=== PATIENT | female | born 1985 | race Caucasian/White ===

== ENCOUNTER 2016-09-14 13:18 | Outpatient (CLI) | payer BC ==
--- NOTE | 2016-09-14 14:00 | L&D Flow Sheet ---
LD Flowsheet Datetime Report Generated by CPN: 09/14/2016 14:00 Datetime: 09/14/2016 13:47 Monitor Interventions for FHR: Ultrasound Adjusted (Phoebe Camp, RNC) Comments: RN at bedside holding monitors (Phoebe Camp, RNC) Datetime: 09/14/2016 13:39 NBP Sys/Mariluz/Mean (mmHg): 114 (QS system process) : 58 (QS system process) : 79 (QS system process) Pulse: 112 (QS system process) Respirations: 16 (Phoebe Camp, RNC) Temperature (F): 98.1 (Phoebe Camp, RNC) Temperature (C): 36.7 (QS system process) Temperature Route: Oral (Phoebe Camp, RNC) LaborFlag: Labor (QS system process) Datetime: 09/14/2016 13:37 I/O Interventions: Popsicle; Clear Liquids Given (Phoebe Camp, RNC) Datetime: 09/14/2016 13:34 Patient Position/Activity: HOB Lowered; Left Lateral (Phoebe Camp, RNC) Patient Care Comments: EFM explained and applied (Phoebe Camp, RNC) Datetime: 09/14/2016 13:32 Instructional Method: Demo; Verbal; Patient Instructed (CATHY Roberto) Plan of Care: Plan of Care Discussed (CATHY Roberto) Unit Routine: [place] to Room; Bed; Monitoring (CATHY Roberto) Related: Hydration (CATHY Roberto) Teaching Comments: reviewed poc for labor check process and NST with expected outcomes and time frames reviewed (CATHY Roberto) Datetime: 09/14/2016 12:00 Stage of : Labor (CATHY Roberto)
--- NOTE | 2016-09-14 14:17 | Non Stress Test Report ---
Non Stress Test Datetime Report Generated by CPN: 09/14/2016 14:17 DEMOGRAPHIC EGA NST: 36.6 INDICATION Indication for Study: Polyhydramnios; Other Indication for Study (NST) Other: maternal obesity VITAL SIGNS Temperature - NST: 98.1 Pulse - NST: 112 RESP - NST: 16 NBPSYS NST: 114 NBPDIA NST: 58 MONITORING Monitor Explained: Monitor Explained; Test Explained; Patient Verbalized Understanding Time on Monitor: 09/14/2016 13:33 Time off Monitor: 09/14/2016 14:04 NST Duration: 31 NST INTERVENTIONS NST Interventions: PO Hydration Physician Notified NST: Dr Zaragoza BABY A: [id number] BABY A Movement : Present Contraction Frequency : none FHR Baseline : 135 Accelerations : 15X15 Decelerations : None Variability : Moderate 6-25bpm NST Review: Meets Criteria for Reactive NST NST Review and Verified By : ELEAZAR PEREZ RN NST Results: Reactive NST REPORT Report Trigger: Send Report
== END 2016-09-14 14:09 | disposition home or self-care (01) ==
LOC: LC 13:18
PROVIDERS: ATTEND Obstetrics & Gynecology
PROC: 4A1HXCZ Monitoring of Products of Conception, Cardiac Rate, External Approach (ICD-10-PCS; principal; 2016-09-14)
DX: Z34.93 Encounter for supervision of normal pregnancy, unspecified, third trimester (principal); Z3A.36 36 weeks gestation of pregnancy
CPT/HCPCS: 59025

== ENCOUNTER 2016-09-29 05:09 | Inpatient (IN) | payer BC, OTHER ==
[2016-09-28 10:30] LABS: ABSOLUTE EOSINOPHILS # (AUTO) 0.1 10^3/uL (0.0-0.6); ABSOLUTE LYMPHOCYTES (AUTO) 1.3 10^3/uL (0.5-4.7); ABSOLUTE MONOCYTES (AUTO) 0.6 10^3/uL (0.1-1.4); ABSOLUTE NEUT (AUTO) 8.3 10^3/uL (1.7-8.2); BASOPHILS % (AUTO) 0.4 % (0-2); HEMATOCRIT 27.7 % (36.0-47.0); HEMOGLOBIN 8.8 g/dL (12.0-15.5); HGB HCT DIFFERENCE -1.3; LYMPHOCYTES % (AUTO) 12.7 % (13-45); MEAN CORPUSCULAR HEMOGLOBIN 22.6 pg (27.0-33.4); MEAN CORPUSCULAR HGB CONC 31.6 g/dL (32.0-36.0); MEAN CORPUSCULAR VOLUME 71 fl (80-97); RED BLOOD COUNT 3.87 10^6/uL (3.72-5.28); RED CELL DISTRIBUTION WIDTH 17.4 % (11.5-14.0); SEGMENTED NEUTROPHILS % (AUTO) 79.9 % (42-78); WHITE BLOOD COUNT 10.4 10^3/uL (4.0-10.5)
[2016-09-28 10:38] LABS: APPEARANCE,URINE SLIGHTLY-CLOUDY; BILIRUBIN,URINE NEGATIVE (NEGATIVE); GLUCOSE, URINE NEGATIVE (NEGATIVE); KETONES,URINE NEGATIVE (NEGATIVE); LEUKOCYTE ESTERASE,URINE SMALL (NEGATIVE); NITRITE,URINE NEGATIVE (NEGATIVE); PROTEIN,URINE NEGATIVE (NEGATIVE); URINE SPECIFIC GRAVITY 1.018
[2016-09-28 11:21] LABS: URINE BARBITURATES SCREEN NEGATIVE; URINE METHADONE SCREEN NEGATIVE; URINE OPIATES LOW NEGATIVE; URINE PHENCYCLIDINE SCREEN NEGATIVE
[~2016-09-29 05:09] MED LIST: AZITHROMYCIN 500 MG in DEXTROSE 5%-WATER 250 ML IV PRN; LACTATED RINGERS 1000 ML IV PRN; LIDOCAINE 0.5% INJ-PF (5 MG/ML) 50 ML SDV SUBCUT PRN; RINGERS SOLUTION,LACTATED 1,500 ML IV PRN
[2016-09-29] MEDS ORDERED: AZITHROMYCIN INJ 500 MG VIAL IV ONE (06:36)
[2016-09-29] MEDS ORDERED: PROPOFOL INJ 200 MG/20 ML VIAL IV ONE (08:01)
[2016-09-29] MEDS ORDERED: OXYTOCIN 10 UNIT/ML VIAL ONE (08:01)
[2016-09-29] MEDS ORDERED: FENTANYL CITRATE INJ/PF 100 MCG/2 ML AMPUL ONE (08:02)
[2016-09-29] MEDS ORDERED: MIDAZOLAM 2 MG/2 ML INJ ONE (08:02)
[2016-09-29] MEDS ORDERED: CLINDAMYCIN 900 MG/D5W RTU 50 ML IV ONE (08:21)
[2016-09-29] MEDS: MISOPROSTOL 0.2 MG TABLET ONE ×2 (09:13→09:27)
[2016-09-29] MEDS ORDERED: ACETAMINOPHEN 100 ML IV ONE (10:01)
[2016-09-29] MEDS ORDERED: LIDOCAINE 2% INJ-PF (20 MG/ML) 10 ML AMPUL ONE (10:10)
[2016-09-29] MEDS ORDERED: PHENYLEPHRINE HCL INJ/PF 10 MG/1 ML SDV ONE (10:10)
[2016-09-29] MEDS ORDERED: METOCLOPRAMIDE HCL INJ/PF 10 MG/2 ML SDV ONE (10:10)
[2016-09-29] MEDS: MEPERIDINE HCL/PF INJ 25 MG/1 ML DISP.SYRIN ONE ×2 (10:10→10:15)
[2016-09-29] MEDS ORDERED: ONDANSETRON HCL INJ/PF 4 MG/2 ML SDV ONE (10:10)
[2016-09-29] MEDS ORDERED: ACETAMINOPHEN 325 MG TABLET PO PRN (10:29)
[2016-09-29] MEDS ORDERED: PROMETHAZINE HCL INJ 25 MG/1 ML VIAL IV PRN (10:29)
[2016-09-29] MEDS ORDERED: MEASLES,MUMPS&RUBELLA VACC/PF 0.5 ML VIAL SUBCUT PRN (10:29)
[2016-09-29] MEDS ORDERED: DIPH/PERTUSS(ACELL)/TETANUS VAC/PF 0.5 ML SYR (>=10YO) IM PRN (10:29)
[2016-09-29] MEDS ORDERED: OXYTOCIN/NORMAL SALINE 1,000 ML IV PRN (10:29)
[2016-09-29] MEDS ORDERED: OXYCODONE-ACETAMINOPHEN 5-325 MG TABLET PO PRN (10:29)
[2016-09-29] MEDS ORDERED: SIMETHICONE 80 MG TAB.CHEW PO PRN (10:29)
[2016-09-29] MEDS ORDERED: KETOROLAC TROMETHAMINE INJ/PF 30 MG/1 ML SDV IV SCH (10:30)
[2016-09-29] MEDS: FENTANYL CITRATE INJ/PF 100 MCG/2 ML AMPUL ONE ×2 (11:15→11:20)
[2016-09-29] MEDS: HYDROMORPHONE HCL INJ/PF 2 MG/ML AMPULE IV PRN ×2 (13:10→18:03)
[2016-09-29] MEDS: CLINDAMYCIN 900 MG/D5W RTU 50 ML IV SCH ×2 (14:15→22:11)
--- NOTE | 2016-09-29 16:14 | XCELERA REPORT ---
[address] [address] Lower Extremity Venous Evaluation Name: JAZMIN FUNES Age: 31 yrs Gender: Female : 1985 Patient Status: Inpatient Patient Location: 2S\S\218\S\A Study Date: 09/29/2016 03:03 PM Procedure: Color flow and duplex imaging of the veins of the right lower extremity as well as the left Common Femoral vein. Reason For Study: lower right calf pain Ordering Physician: NAM PALACIOS Performed By: Briana Vazquez Right Sided Venous Evaluation Normal vessel filling wall to wall, compression and augmentation as well as Colour flow down to the infrageniculate veins. Left Sided Venous Evaluation The left common femoral vein is fully compressible. Spontaneous and phasic flow is present in the left common femoral vein. Interpretation Summary No duplex evidence of DVT or obstruction in the right lower extremity nor in the left Common Femoral vein. : NAM PALACIOS > Ross Fletcher
[2016-09-29] MEDS: DOCUSATE SODIUM 100 MG CAPSULE PO SCH (18:03)
[2016-09-29] MEDS ORDERED: IBUPROFEN 800 MG TABLET PO SCH (22:00)
[2016-09-29] MEDS: KETOROLAC TROMETHAMINE INJ/PF 30 MG/1 ML SDV IV SCH (22:08)
[2016-09-30] MEDS: OXYCODONE-ACETAMINOPHEN 5-325 MG TABLET PO PRN ×2 (03:46→20:44)
--- NOTE | 2016-09-30 06:01 | L&D General Admission ---
General Admit Datetime Report Generated by CPN: 09/30/2016 06:00 INFORMATION Patient Age: 31 (09/08/2016 14:06:QS system process) EDC: 10/06/2016 00:00 (09/14/2016 13:30:CATHY Roberto) : 5 (09/14/2016 13:30:Constance Carrillo RN) Para: 3 (09/14/2016 13:30:Constance Carrillo RN) Term: 3 (09/14/2016 13:30:Constance Carrillo RN) Induced Abortions: 1 (09/14/2016 13:30:Constance Carrillo RN) Livin (09/14/2016 13:30:Constance Carrillo RN) Cesareans: 3 (09/14/2016 13:30:Constance Carrillo RN) VBACs: 0 (09/14/2016 13:30:CATHY Roberto) Ectopic: 0 (09/14/2016 13:30:CATHY Roberto) Multiple Births: 0 (09/14/2016 13:30:CATHY Roberto) Baby, Number in Womb: 1 (09/14/2016 13:30:CATHY Roberto) CARE Primary Substation Operator Helper Generation: [facility] (09/14/2016 13:30:Constance Carrillo RN) Month of 1st Visit: August (09/14/2016 13:30:Constance Carrillo RN) Adequate Care: No (09/14/2016 13:30:Constance Carrillo RN) Height (in): 66 (09/29/2016 14:32:QS system process) ALLERGIES Medication Allergy: No (09/14/2016 13:30:CATHY Roberto) Medication Allergies: Penicillins/SV/itching (09/28/2016); Shellfish */SV/Hives (09/28/2016); amoxicillin/SV/itching (09/28/2016) (09/29/2016 05:10:QS system process) Latex Allergy: No Latex Allergies (09/14/2016 13:30:Phoebe Camp, RNC) COMMUNICATION Primary Language: Kuwaiti (09/14/2016 13:30:Constance Carrillo RN) Medical Tx Preferred Language: Kuwaiti (09/14/2016 13:30:Phoebe Camp, RNC) Communication Barrier(s): None (09/14/2016 13:30:Phoebe Camp, RNC) DEMOGRAPHICS Address: [address] [place] [id number] (09/08/2016 17:29:QS system process) Zipcode: [address] (09/08/2016 17:29:QS system process) Home (09/08/2016 14:06:QS system process) SSN: [id number] (09/08/2016 14:06:QS system process) Next of Kin Name: SHELLY FUNES (09/14/2016 13:18:QS system process) Next of Kin (09/14/2016 13:18:QS system process) Next of Kin Relationship: MO (09/08/2016 14:06:QS system process) Date of : 1985 (09/08/2016 14:06:QS system process) Marital Status: (09/08/2016 14:06:QS system process) Sex: Female (09/08/2016 14:06:QS system process) Race: (09/08/2016 14:06:QS system process) Ethnicity: Non- or (09/08/2016 14:06:QS system process) Confucianist: None (09/14/2016 13:18:QS system process) LABS Blood Type: A Positive (09/14/2016 13:30:Constance Carrillo RN) Antibody Screen: negative (09/14/2016 13:30:Constance Carrillo RN) Rho(G) this : Yes (09/14/2016 13:30:Constance Carrillo RN) Date Rho(G) Given: 2-09-22506 (09/14/2016 13:30:Constance Carrillo RN) Hemoglobin: 8.8 L (09/28/2016 09:43:QS system process) Hematocrit: 27.7 L (09/28/2016 09:43:QS system process) MCV: 71 L (09/28/2016 09:43:QS system process) RPR/VDRL: Nonreactive (09/14/2016 13:30:Constance Carrillo RN) Hepatitis B: Negative (09/14/2016 13:30:Constance Carrillo RN) Rubella: Immune (09/14/2016 13:30:Constance Carrillo RN)
[2016-09-30] MEDS: KETOROLAC TROMETHAMINE INJ/PF 30 MG/1 ML SDV IV SCH (06:14)
[2016-09-30] MEDS: CLINDAMYCIN 900 MG/D5W RTU 50 ML IV SCH (06:14)
[2016-09-30 07:28] LABS: HEMATOCRIT 26.5 % (36.0-47.0); HEMOGLOBIN 8.3 g/dL (12.0-15.5); HGB HCT DIFFERENCE -1.6; MEAN CORPUSCULAR HEMOGLOBIN 22.4 pg (27.0-33.4); MEAN CORPUSCULAR HGB CONC 31.2 g/dL (32.0-36.0); MEAN CORPUSCULAR VOLUME 72 fl (80-97); RED CELL DISTRIBUTION WIDTH 17.8 % (11.5-14.0); WHITE BLOOD COUNT 10.7 10^3/uL (4.0-10.5)
[2016-09-30] MEDS ORDERED: PRENATAL VITAMIN W-O CA NO5/FE FUMARATE/FA CAPSULE PO SCH (10:00)
[2016-09-30] MEDS ORDERED: FERROUS SULFATE 325 MG TABLET PO SCH (10:00)
[2016-09-30] MEDS: FERROUS SULFATE 325 MG TABLET PO SCH (10:46)
[2016-09-30] MEDS: PRENATAL VITAMIN W-O CA NO5/FE FUMARATE/FA CAPSULE PO SCH (10:46)
[2016-09-30] MEDS: DOCUSATE SODIUM 100 MG CAPSULE PO SCH ×2 (10:47→18:18)
--- NOTE | 2016-09-30 11:16 | PDOC PROGRESS REPORT ---
Subjective-OB Subjective: Post Delivery Day: 1 31 year old. Denies any needs at this time, lochia is stable, pain is well controlled, voiding without difficulty. Passing gas, tolerating diet ambulating steady, has been down to visit baby. Physical Exam (OB) Vital Signs: Temp Pulse Resp BP Pulse Ox 98.5 F 99 18 105/51 L 97 09/30/16 07:42 09/30/16 07:42 09/30/16 07:42 09/30/16 07:42 09/30/16 07:42 Intake & Output 09/29/16 09/30/16 10/01/16 06:59 06:59 06:59 Intake Total 4475 Output Total 5550 Balance -1075 Weight 131.54 kg - Incision: Well Approximated Closure Type: Surgical Glue - Lochia Lochia Amount: Small 10-25 ml Lochia Color: Rubra/Red - Abdomen Description: Soft, Round Hernia Present: No Fundal Description: Firm, Midline Fundal Height: u/u - u/2 Objective-Diagnostic Laboratory: 09/30/16 07:13 09/30/16 09/30/16 07:13 07:13 WBC 10.7 H RBC 3.70 L Hgb 8.3 L Hct 26.5 L MCV 72 L MCH 22.4 L MCHC 31.2 L RDW 17.8 H Plt Count 178 Blood Type A NEGATIVE Assessment and Plan(PN) - Assessment and Plan (1) Status post repeat low transverse section Is this a current diagnosis for this admission?: YesPlan: routine post-op care progressive ambulation diet as tolerated (2) Acute blood loss anemia Is this a current diagnosis for this admission?: YesPlan: ferrous sulfate increase dietary iron (3) Polyhydramnios Qualifiers: Fetus number: single or unspecified fetus Is this a current diagnosis for this admission?: Yes (4) Placenta percreta during in third trimester, antepartum Is this a current diagnosis for this admission?: Yes - Time Spent with Patient Time with patient: Less than 15 minutes Critical Time spent with patient: Less than 15 minutes Medications reviewed and adjusted accordingly: Yes - Disposition Anticipated Discharge: Home Within: within 48 hours
[2016-09-30] MEDS: IBUPROFEN 800 MG TABLET PO SCH ×3 (13:03→23:00)
[2016-10-01] MEDS: IBUPROFEN 800 MG TABLET PO SCH ×4 (05:26→23:24)
[2016-10-01] MEDS: FERROUS SULFATE 325 MG TABLET PO SCH (09:30)
[2016-10-01] MEDS: DOCUSATE SODIUM 100 MG CAPSULE PO SCH ×2 (09:30→18:14)
[2016-10-01] MEDS: PRENATAL VITAMIN W-O CA NO5/FE FUMARATE/FA CAPSULE PO SCH (09:30)
--- NOTE | 2016-10-01 09:40 | PDOC PROGRESS REPORT ---
Subjective-OB Subjective: Post Delivery Day: 2 31 year old. Denies any needs at this time, baby is doing better, pt coping well, voiding without difficulty, hopes to bring baby to room with pt tonight. Physical Exam (OB) Vital Signs: Temp Pulse Resp BP Pulse Ox 97.8 F 82 16 115/67 98 10/01/16 04:31 10/01/16 04:31 10/01/16 04:31 10/01/16 04:31 10/01/16 04:31 Intake & Output 09/30/16 10/01/16 10/02/16 06:59 06:59 06:59 Intake Total 4475 300 Output Total 5550 Balance -1075 300 - Dressing Removed: Yes Incision: Well Approximated Closure Type: Surgical Glue - Lochia Lochia Amount: Small 10-25 ml Lochia Color: Rubra/Red - Abdomen Description: Soft, Round Hernia Present: No Fundal Description: Firm, Midline Fundal Height: u/u - u/2 Objective-Diagnostic Laboratory: 09/30/16 07:13 09/30/16 07:13 Blood Type A NEGATIVE Assessment and Plan(PN) - Assessment and Plan (1) Status post repeat low transverse section Is this a current diagnosis for this admission?: YesPlan: routine post op care d/c home tomorrow (2) Acute blood loss anemia Is this a current diagnosis for this admission?: YesPlan: ferrous sulfate increase dietary iron (3) Polyhydramnios Qualifiers: Fetus number: single or unspecified fetus Is this a current diagnosis for this admission?: Yes (4) Placenta percreta during in third trimester, antepartum Is this a current diagnosis for this admission?: Yes - Time Spent with Patient Time with patient: Less than 15 minutes Critical Time spent with patient: Less than 15 minutes Medications reviewed and adjusted accordingly: Yes - Disposition Anticipated Discharge: Home Within: within 24 hours
[2016-10-02] MEDS: IBUPROFEN 800 MG TABLET PO SCH (05:17)
--- NOTE | 2016-10-02 08:54 | PDOC DISCHARGE SUMMARY ---
Final Diagnosis Discharge Date: 10/02/16 - Final Diagnosis (1) Acute blood loss anemia Is this a current diagnosis for this admission?: Yes (2) Placenta percreta during in third trimester, antepartum Is this a current diagnosis for this admission?: Yes (3) Polyhydramnios Is this a current diagnosis for this admission?: Yes (4) Status post repeat low transverse section Is this a current diagnosis for this admission?: Yes Discharge Data - Discharge Medication Home Medications: Pnv W-O Ca No5/Fe Fumarate/FA [-U Multiple Vitamin Capsule] 1 cap PO DAILY 02/01/13 Ferrous Sulfate [Iron] 1 tab PO DAILY 09/14/16 Hydroxyzine HCl 25 mg PO DAILY 09/28/16 Nitrofurantoin Monohyd/M-Cryst [Macrobid 100 mg Capsule] 100 mg PO BID 09/28/16 Reason(s) for Admission: Ceasarean Section-Repeat Procedures: Ultrasound Intrapartum Procedure(s): : Low Cervical, Transverse - Diagnosis Test Laboratory: Temp Pulse Resp BP Pulse Ox 98.4 F 81 16 105/61 99 10/02/16 03:55 10/02/16 03:55 10/02/16 03:55 10/02/16 03:55 10/02/16 03:55 09/28/16 09/28/16 09/30/16 09:34 09:43 07:13 RBC 3.87 3.70 L Hgb 8.8 L 8.3 L Hct 27.7 L 26.5 L Urine Opiates Screen NEGATIVE - Discharge information/Instructions Discharge Activity: No Driving, No Lifting Over 10 Pounds, Slowly Increase Activity, Walk Frequently Discharge Diet: Regular Disposition: HOME, SELF-CARE Follow up with: [facility] in: 1 - pt may be a late discharge instructions given to keep incision dry and intact
[2016-10-02 09:11] VITALS: BP 118/71
[2016-10-02] MEDS: PRENATAL VITAMIN W-O CA NO5/FE FUMARATE/FA CAPSULE PO SCH (10:08)
[2016-10-02] MEDS: FERROUS SULFATE 325 MG TABLET PO SCH (10:08)
[2016-10-02] MEDS: DOCUSATE SODIUM 100 MG CAPSULE PO SCH (10:08)
--- NOTE | 2016-10-30 07:45 | Operative Report ---
Operative Report DATE OF SURGERY: 09/29/16 POSTOPERATIVE DIAGNOSIS: Percreta, Polyhydramnios, Transverse Back Down delivered breech OPERATION: RELTCS SURGEON: NESSA METZ ANESTHESIA: Spinal ESTIMATED BLOOD LOSS: 700ml PROCEDURE: PREOPERATIVE DIAGNOSIS: undelivered at [39+0] weeks, Polyhydramnios, Prior C/S x3, Transverse presentation POSTOPERATIVE DIAGNOSIS: Same as above delivered Procedure: RELTCS Otr Driver:[None] Anesthesia: Spinal Anesthesia provider: Michael] Estimated blood loss: [700ml] Urine output: [200ml, clear urine] IV fluids: [2800ml] Complications: [None] Specimens: [None] Findings: [Vessels visible at uterine scar - suspect increta/percreta, Transverse back down presentation delivered in breech fashion, VMI delivered at 0844, Apgars 3/7. Scar of Omentum and anterior uterine body to anterior abdominal wall, normal bilateral ovaries.] Indications: [31yo at 39+0ega (CANDIDO 10/06/2016) presents for scheduled RELTCS due to history of prior section x 3. also complicated by Transverse presentation and polyhydramnios. The risks, benefits , alternatives were reviewed and the patient desires to proceed with planned procedure] Procedure: The patient was taken to the operating room where spinal anesthesia was obtained and found to be adequate. She was then prepped and draped in the normal sterile fashion and placed in the dorsal supine position with a leftward tilt. A Pfannenstiel skin incision was then made and carried through to the underlying layers of the fascia with the scalpel. The fascia was incised in the midline and the incision extended laterally with the Perry scissors. The superior aspect of the fascial incision was then grasped with Teri clamps elevated and the underlying rectus muscles dissected off [bluntly]. Attention was then turned to the inferior aspect of the fascial incision which in a similar fashion was grasped, tented up with Eugene clamps, and the rectus muscles dissected off [bluntly]. The rectus muscles were then in the midline and the peritoneum at the amount identified and entered [bluntly]. The peritoneal incision was then extended superiorly and inferiorly with good visualization of the bladder. Lysis of adhesions removing omental adhesions and uterine body adhesions to anterior abdominal wall. The bladder blade was inserted and the lower uterine segment incised in a transverse fashion with the scalpel below the visible vessels extending into uterine scar. The uterine incision was then extended bluntly. The bladder blade was removed and the infant's head was converted from transverse presentation and delivered from breech presentation atraumatically. The nose and mouth were suctioned and the cord doubly clamped and cut. And the was handed off to waiting pediatricians. The placenta was then delivered spontaneously and the uterus exteriorized and cleared of all clots and debris. The uterine incision was then repaired with 1- 0 Vicryl in a running locked fashion. A second layer of the same suture was used to obtain hemostasis via imbrication of the initial layer. The uterus was returned to the patient's abdomen and Interceed was placed overlying the uterine incision to prevent adhesions. The gutters were cleared of all clots and debris. All operative sites were noted to be hemostatic. The fascia was reapproximated with 0 Vicryl in a running fashion from each lateral edge to the midline. The skin was closed with 3-0 Monocryl in a running subcuticular fashion with overlying Dermabond for additional dressing as well as wound closure. The patient tolerated the procedure well. Sponge lap needle and instrument counts are correct times 2. Zithromycin 500mg IV and 900mg of Clindamycin IV were given prior to skin incision. The patient was taken to the recovery area awake and in stable condition.
== END 2016-10-02 11:22 | disposition home or self-care (01) | DRG 765 ==
LOC: 2S 05:09
PROVIDERS: ADMIT Student in an Organized Health Care Education/Training Program; ATTEND Student in an Organized Health Care Education/Training Program
PROC: 4A1HXCZ Monitoring of Products of Conception, Cardiac Rate, External Approach (ICD-10-PCS; 2016-09-29)
PROC: 10D00Z1 Extraction of Products of Conception, Low, Open Approach (ICD-10-PCS; principal; 2016-09-29 07:45)
PROC: 3E0234Z Introduction of Serum, Toxoid and Vaccine into Muscle, Percutaneous Approach (ICD-10-PCS; 2016-09-30)
DX: O40.3XX0 Polyhydramnios, third trimester, not applicable or unspecified (principal); D62 Acute posthemorrhagic anemia; O72.0 Third-stage hemorrhage; O34.211 Maternal care for low transverse scar from previous cesarean delivery; O99.02 Anemia complicating childbirth; O43.233 Placenta percreta, third trimester; O36.63X0 Maternal care for excessive fetal growth, third trimester, not applicable or unspecified; O64.8XX0 Obstructed labor due to other malposition and malpresentation, not applicable or unspecified; O32.1XX0 Maternal care for breech presentation, not applicable or unspecified; O26.893 Other specified pregnancy related conditions, third trimester; Z67.11 Type A blood, Rh negative; Z3A.39 39 weeks gestation of pregnancy; Z37.0 Single live birth
CPT/HCPCS: 1961; 36415; 80307; 81001; 85025; 85027; 85461; 86850; 86870; 86900; 86901; 88307; 93971; 94799; C1765; J0131; J0456; J1170; J1885; J2175; J2250; J2370; J2405; J2590; J2704; J2765; J2790; J3010; J3490; J7060; J7120

== ENCOUNTER 2018-03-01 08:59 | Emergency (ER) | payer BC ==
[2018-03-01] MEDS ORDERED: ONDANSETRON HCL INJ/PF 4 MG/2 ML SDV IV ONE (09:33)
[2018-03-01] MEDS: NORMAL SALINE 1000 ML 1,000 ML IV PRN ×2 (09:43→11:57)
[2018-03-01 10:06] LABS: ABSOLUTE LYMPHOCYTES (AUTO) 1.3 10^3/uL (0.5-4.7); ABSOLUTE MONOCYTES (AUTO) 0.7 10^3/uL (0.1-1.4); ABSOLUTE NEUT (AUTO) 8.4 10^3/uL (1.7-8.2); BASOPHILS % (AUTO) 0.3 % (0-2); EOSINOPHILS % (AUTO) 0.1 % (0-6); HEMATOCRIT 40.1 % (36.0-47.0); HEMOGLOBIN 13.7 g/dL (12.0-15.5); LYMPHOCYTES % (AUTO) 12.5 % (13-45); MEAN CORPUSCULAR HEMOGLOBIN 28.1 pg (27.0-33.4); MEAN CORPUSCULAR HGB CONC 34.1 g/dL (32.0-36.0); MEAN CORPUSCULAR VOLUME 83 fl (80-97); MONOCYTES % (AUTO) 7.2 % (3-13); PLATELET COUNT 336 10^3/uL (150-450); RED BLOOD COUNT 4.86 10^6/uL (3.72-5.28); RED CELL DISTRIBUTION WIDTH 15.1 % (11.5-14.0); SEGMENTED NEUTROPHILS % (AUTO) 79.9 % (42-78); TOTAL CELLS COUNTED % (AUTO) 100 %; WHITE BLOOD COUNT 10.5 10^3/uL (4.0-10.5)
--- NOTE | 2018-03-01 10:16 | ER Document Report ---
ED General - General Chief Complaint: Nausea/Vomiting Stated Complaint: VOMITING,NAUSEA Time Seen by Provider: 03/01/18 09:26 Notes: Patient says that she picked up a "stomach bug" at work and has been sick for the past week. She says that she feels like a "truck has run over me", with generalized aching and nausea for 1 week. For the past 3 days she is actually been vomiting. Her vomiting has now become associated with some blood.. Patient has not had any diarrhea. In fact, she has not had a bowel movement in over a week. Has not been aware of any fevers. Has generalized headache. Also , some sore throat. Patient says a large number of people at her workplace are sick with similar symptoms. 1 of these patients went to a local medical provider who told her she had a "bacterial infection" LMP January 30, on control pills. Hx C-sections but no other abdominal surgeries. Not on any regular prescription medications. TRAVEL OUTSIDE OF THE [place] IN LAST 30 DAYS: No - Related Data Allergies/Adverse Reactions: amoxicillin Allergy (Severe, Verified 03/01/18 09:01) itching Penicillins Allergy (Severe, Verified 03/01/18 09:01) itching Shellfish * [Shellfish] Allergy (Severe, Verified 03/01/18 09:01) Hives anesthesia? Allergy (Severe, Uncoded 03/01/18 09:01) hives post anesthesia cats Allergy (Severe, Uncoded 03/01/18 09:01) itching Past Medical History - Social History Smoking Status: Never Smoker Frequency of alcohol use: None Drug Abuse: None Family History: Reviewed & Not Pertinent Patient has suicidal ideation: No Patient has homicidal ideation: No Endocrine Medical History: Denies: Hx Diabetes Mellitus Type 1, Hx Diabetes Mellitus Type 2 Past Surgical History: Reports: Hx Section - x4 - Immunizations Hx Diphtheria, Pertussis, Tetanus Vaccination: Yes Review of Systems - Review of Systems Notes: REVIEW OF SYSTEMS: CONSTITUTIONAL : Denies fever. EENT: Denies eye, ear, nose or mouth pain or other symptoms. Does have sore throat. CARDIOVASCULAR: Denies chest pain. RESPIRATORY: Denies cough, chest congestion, or shortness of breath. GASTROINTESTINAL: Mild diffuse generalized abdominal pain. See HPI. GENITOURINARY: Denies difficulty or painful urinating, urinary frequency, blood in urine. MUSCULOSKELETAL: Denies back or neck pain. Denies joint pain or swelling. SKIN: Denies rash or skin lesions. NEUROLOGICAL: Denies LOC or altered mental status. Has global headache. Denies sensory loss or motor deficits. ALL OTHER SYSTEMS REVIEWED AND NEGATIVE. Physical Exam - Vital signs Vitals: Temp Pulse Resp BP Pulse Ox 98.3 F 113 H 20 114/85 98 03/01/18 09:05 03/01/18 09:05 03/01/18 09:05 03/01/18 09:05 03/01/18 09:05 Interpretation: Tachycardic. No: Febrile - Notes Notes: PHYSICAL EXAMINATION: GENERAL: Well-appearing, in no acute distress. Slightly tachycardic vital signs. HEAD: Atraumatic, normocephalic. EYES: Pupils equal round and reactive to light, extraocular movements intact. ENT: oropharynx with mild erythema, but without exudates. Moist mucous membranes. NECK: Normal range of motion, supple. Can easily touch chin to chest. LUNGS: Breath sounds clear and equal bilaterally. HEART: Regular rate and rhythm without murmurs. ABDOMEN: Soft, nontender. No guarding or rebound. No masses. BACK: No tenderness throughout entire back. EXTREMITIES: Normal range of motion without pain. NEUROLOGICAL: Normal speech, normal gait. Normal sensory, motor, and reflex exams. Awake, alert, and oriented x3. Cranial nerves normal. PSYCH: Normal mood, normal affect. SKIN: Warm, dry, no rashes. Course - Re-evaluation Re-evalutation: 03/01/18 10:29 Labs will be ordered. IV fluids will be given. 03/01/18 11:50 Nausea is better. Patient is still complaining of pain in the back of her throat and in the substernal chest region. I think that is probably secondary to the acid being refluxed with her vomiting so much. We will give her some Maalox. She does have some injection or erythema the posterior oropharynx, but does not look like a strep infection. She has not been keeping her elbow straight and has only gotten three fourths of a liter of saline so I am encouraging her to keep her elbow straight and the nurses to get her second liter of fluid. Patient's qualitative test was positive so I am ordering a quantitative test. Patient's quantitative hCG came back positive twice. Informed her that she is, in fact, . Patient seems to have not been expecting that lab result. Patient's labs suggest some degree of dehydration. She has been given 2 L of normal saline in the emergency department. She still nauseated at times and even vomited close to the time that she was discharged. However, she is hydrated at this time and there is no evidence of any infections that need to be treated with antibiotics or other measures. She is being given a prescription for Phenergan tablets for nausea and vomiting. Note for work until Sunday. - Vital Signs Vital signs: Temp Pulse Resp BP Pulse Ox 97.9 F 75 18 124/82 100 03/01/18 13:40 03/01/18 13:40 03/01/18 13:40 03/01/18 13:40 03/01/18 13:40 - Laboratory Result Diagrams: 03/01/18 09:49 03/01/18 09:49 Laboratory results interpreted by me: 03/01/18 03/01/18 03/01/18 09:49 09:49 09:49 RDW 15.1 H Seg Neutrophils % 79.9 H Lymphocytes % 12.5 L Absolute Neutrophils 8.4 H Chloride 97 L BUN 26 H Glucose 142 H Calcium 10.5 H Direct Bilirubin 0.5 H Total Protein 8.9 H Serum HCG, Qual POSITIVE H Beta HCG, Quant Urine Protein Urine Ketones Urine Bilirubin Urine Urobilinogen Ur Leukocyte Esterase 03/01/18 03/01/18 03/01/18 09:49 11:27 11:54 RDW Seg Neutrophils % Lymphocytes % Absolute Neutrophils Chloride BUN Glucose Calcium Direct Bilirubin Total Protein Serum HCG, Qual Beta HCG, Quant 81991.00 H 64567.00 H Urine Protein 100 H Urine Ketones 20 H Urine Bilirubin SMALL H Urine Urobilinogen 4.0 H Ur Leukocyte Esterase TRACE H 03/01/18 11:54 RDW Seg Neutrophils % Lymphocytes % Absolute Neutrophils Chloride BUN Glucose Calcium Direct Bilirubin Total Protein Serum HCG, Qual POSITIVE H Beta HCG, Quant Urine Protein Urine Ketones Urine Bilirubin Urine Urobilinogen Ur Leukocyte Esterase Discharge - Discharge Clinical Impression: , Vomiting Condition: Stable Disposition: HOME, SELF-CARE Additional Instructions: VOMITING: Vomiting (or nausea without vomiting) can be caused by many other different problems. It can mean that something's wrong with the stomach, such as ulcers or inflammation or the intestinal tract, such as appendicitis. But it can also be a symptom of a problem that has nothing to do with the stomach or intestines. Vomiting is common with severe headaches, earaches, tonsillitis, and kidney infections, etc. We see it with pneumonia or heart attacks. Drugs can cause nausea and vomiting. Many abdominal problems cause vomiting; for example, gallstones, kidney stones, pancreatitis, and intestinal obstruction ( blocked bowels). In most cases, curing the vomiting depends on fixing the problem that caused it. For temporary relief, we may use an anti-nausea medicine. For home use, we can prescribe suppositories, chewable pills, pills that dissolve in the mouth, or liquid anti-nausea drugs. If the vomiting seems to be caused by a problem in the stomach, acid-suppressing drugs may be prescribed as well. It's important to avoid dehydration. Sip small amounts of clear liquids ( soft drinks, tea, broth, etc) . Try to take fluids frequently even if you are vomiting to prevent dehydration. Take increasing amounts of fluid and when liquids are being consumed successfully, advance to small amounts of bland food (toast, soups, mashed potatoes, etc.) until you are able to resume a regular diet. Avoid aspirin, tobacco, and alcohol. If the vomiting worsens, if the problem that's making you vomit worsens, or if there's evidence of bleeding in the stomach (such as black, tarry stool, or bloody or black vomit), you should return immediately. Also, return if abdominal pain worsens or becomes localized to one area or you develop high fever. Call your doctor if you aren't improved in 24 hours. VIRAL SYNDROME: The physician has diagnosed a possible viral infection. Viruses not only cause "colds," but can cause many different symptoms including generalized aching, fever, headache, cough, diarrhea, nausea, vomiting, and fatigue. The treatment, for the most part, is simply relief of symptoms. This means that antibiotics are usually not given. Rest, fluids, pain medications and, occasionally, medication for the specific symptoms that are most bothersome will be prescribed. Use good handwashing to avoid passing the virus to others. Shared toys should be cleaned with disinfectant. Clean the toilets, sinks, and counter surfaces in bathrooms. Launder clothing in hot water. Contact the physician if you develop any new or unusual symptoms such as severe headache, stiff neck, high fever, chest pain, productive cough, or shortness of breath. You should be rechecked if you don't see marked improvement within seven to 10 days. You are . care is best started as early in as possible. If you're unsure about continuing this , you should discuss this with your physician or with check cashier at [facility]. You should take only medications approved by your physician. Acetaminophen can safely be taken for minor pains. As a rule, medication for chronic conditions such as asthma or seizures can safely be continued. You should discuss with the physician every medicine you take. Any regular exercise program can be continued. Talk to your physician, however, before engaging in competitive or demanding sports. Alcohol, smoking, and "street drugs" are dangerous to your baby. Cocaine is especially dangerous. Don't use any illicit drugs! INTRAVENOUS (I V) FLUIDS: As part of your care today, you received intravenous (IV) fluids. IV fluids are administered to patients who are dehydrated or to those who have certain chemical (electrolyte) abnormalities that need correcting. ANTINAUSEA MEDICATION: You have been given a medication to suppress nausea and vomiting. This type of medication can be given as a shot, pill, or suppository. It will usually last for many hours. Pills and shots usually last six to eight hours. For the typical illness, only one or two doses of the medication may be necessary. Mild lightheadedness may occur. This type of medicine can cause drowsiness. Do not drive or operate dangerous machinery while under its influence. Do not mix with alcohol. See your doctor at once if you have muscle spasms or tightness, or uncontrollable motions (particularly of the neck, mouth, or jaw). Persistent vomiting or severe lightheadedness should also be evaluated by the physician. FOLLOW-UP CARE: If you have been referred to a physician for follow-up care, call the physician s office for an appointment as you were instructed or within the next two days. If you experience worsening or a significant change in your symptoms, notify the physician immediately or return to the Emergency Department at any time for re-evaluation. Prescriptions: Promethazine HCl [Phenergan 25 mg Tablet] 1 - 2 tab PO Q6H PRN #20 tablet PRN Reason: Forms: Return to Work
[2018-03-01] MEDS ORDERED: PROMETHAZINE HCL 25 MG TABLET PO ONE (10:20)
[2018-03-01] MEDS ORDERED: ACETAMINOPHEN 325 MG TABLET PO ONE (10:21)
[2018-03-01 10:30] LABS: ALANINE AMINOTRANSFERASE 52 U/L (9-52); ALBUMIN 4.9 g/dL (3.5-5.0); ALKALINE PHOSPHATASE 123 U/L (38-126); ANION GAP 18 (5-19); ASPARTATE AMINO TRANSFERASE 35 U/L (14-36); BILIRUBIN,DIRECT 0.5 mg/dL (0.0-0.4); BILIRUBIN,TOTAL 1.2 mg/dL (0.2-1.3); BLOOD UREA NITROGEN 26 mg/dL (7-20); CALCIUM 10.5 mg/dL (8.4-10.2); CARBON DIOXIDE 24 mmol/L (22-30); CHLORIDE 97 mmol/L (98-107); GLUCOSE 142 mg/dL (75-110); LIPASE 94.6 U/L (23-300); SODIUM 139.4 mmol/L (137-145); TOTAL PROTEIN 8.9 g/dL (6.3-8.2)
[2018-03-01] MEDS ORDERED: MAG HYDROX/AL HYDROX/SIMETH SUSP 30 ML UDCUP PO ONE (11:48)
[2018-03-01 12:10] LABS: APPEARANCE,URINE CLOUDY; BILIRUBIN,URINE SMALL (NEGATIVE); GLUCOSE, URINE NEGATIVE (NEGATIVE); KETONES,URINE 20 mg/dL (NEGATIVE); LEUKOCYTE ESTERASE,URINE TRACE (NEGATIVE); NITRITE,URINE NEGATIVE (NEGATIVE); PROTEIN,URINE 100 mg/dL (NEGATIVE); URINE SPECIFIC GRAVITY 1.027
[2018-03-01 12:17] LABS: COLOR,URINE YELLOW
[2018-03-01 13:42] VITALS: BP 124/82
[2018-03-01] MEDS ORDERED: METOCLOPRAMIDE HCL INJ/PF 10 MG/2 ML SDV IV ONE (13:45)
== END 2018-03-01 13:50 | disposition home or self-care (01) ==
LOC: ER 08:59
DX: O21.9 Vomiting of pregnancy, unspecified (principal); Z79.3 Long term (current) use of hormonal contraceptives; Z88.0 Allergy status to penicillin; Z91.013 Allergy to seafood
CPT/HCPCS: 99284; 96361; 96374; 96375; 36415; 87086; 84702; 83690; 84703; 85025; 87088; 80053; 81001; 87186; J2765; J2405; J7030

== ENCOUNTER 2018-10-02 09:00 | Inpatient (IN) | payer BC ==
[2018-10-01 10:25] LABS: ABSOLUTE BASOPHILS # (AUTO) 0.1 10^3/uL (0.0-0.2); ABSOLUTE EOSINOPHILS # (AUTO) 0.1 10^3/uL (0.0-0.6); ABSOLUTE LYMPHOCYTES (AUTO) 1.3 10^3/uL (0.5-4.7); ABSOLUTE MONOCYTES (AUTO) 0.5 10^3/uL (0.1-1.4); ABSOLUTE NEUT (AUTO) 5.2 10^3/uL (1.7-8.2); BASOPHILS % (AUTO) 0.8 % (0-2); EOSINOPHILS % (AUTO) 1.4 % (0-6); HEMATOCRIT 28.6 % (36.0-47.0); HEMOGLOBIN 9.2 g/dL (12.0-15.5); LYMPHOCYTES % (AUTO) 18.6 % (13-45); MEAN CORPUSCULAR HEMOGLOBIN 23.5 pg (27.0-33.4); MEAN CORPUSCULAR HGB CONC 32.1 g/dL (32.0-36.0); MEAN CORPUSCULAR VOLUME 73 fl (80-97); MONOCYTES % (AUTO) 7.1 % (3-13); PLATELET COUNT 205 10^3/uL (150-450); RED BLOOD COUNT 3.91 10^6/uL (3.72-5.28); RED CELL DISTRIBUTION WIDTH 17.2 % (11.5-14.0); SEGMENTED NEUTROPHILS % (AUTO) 72.1 % (42-78); TOTAL CELLS COUNTED % (AUTO) 100 %; WHITE BLOOD COUNT 7.2 10^3/uL (4.0-10.5)
[2018-10-01 10:34] LABS: APPEARANCE,URINE SLIGHTLY-CLOUDY; BILIRUBIN,URINE NEGATIVE (NEGATIVE); CALCIUM OXALATE CRYSTALS,URINE RARE /HPF; COLOR,URINE YELLOW; GLUCOSE, URINE 150 mg/dL (NEGATIVE); KETONES,URINE NEGATIVE (NEGATIVE); LEUKOCYTE ESTERASE,URINE NEGATIVE (NEGATIVE); NITRITE,URINE NEGATIVE (NEGATIVE); PROTEIN,URINE NEGATIVE (NEGATIVE); URINE SPECIFIC GRAVITY 1.021; UROBILINOGEN,URINE NEGATIVE mg/dL (<2.0)
[2018-10-01 11:28] LABS: URINE AMPHETAMINES SCREEN NEGATIVE; URINE BARBITURATES SCREEN NEGATIVE; URINE BENZODIAZEPINES SCREEN NEGATIVE; URINE COCAINE SCREEN NEGATIVE; URINE MARIJUANA (THC) SCREEN NEGATIVE; URINE METHADONE SCREEN NEGATIVE; URINE PHENCYCLIDINE SCREEN NEGATIVE
[2018-10-03] MEDS ORDERED: FENTANYL CITRATE INJ/PF 100 MCG/2 ML AMPUL ONE (07:06)
[2018-10-03] MEDS ORDERED: OXYTOCIN 10 UNIT/ML VIAL ONE (07:06)
[2018-10-03] MEDS ORDERED: OXYTOCIN/NORMAL SALINE 20 UNIT/1,000 ML RTUINJ ONE (07:06)
[2018-10-03] MEDS ORDERED: MIDAZOLAM 2 MG/2 ML INJ ONE (07:06)
[2018-10-03] MEDS ORDERED: METHYLERGONOVINE MALEATE INJ/PF 0.2 MG/1 ML AMPULE ONE (07:06)
[2018-10-03] MEDS ORDERED: EPHEDRINE SULFATE INJ 50 MG/1 ML AMPULE ONE (07:06)
[2018-10-03] MEDS ORDERED: ACETAMINOPHEN 1,000 MG/100 ML RTUPB IV ONE (07:06)
[2018-10-03] MEDS ORDERED: ONDANSETRON HCL INJ/PF 4 MG/2 ML SDV ONE (07:07)
[2018-10-03] MEDS ORDERED: CEFAZOLIN 2 GM/D5W RTU 2 GM/50 ML RTUPB IV ONE (08:07)
[2018-10-03] MEDS ORDERED: VANCOMYCIN HCL INJ 1000 MG VIAL ONE (08:36)
[2018-10-03] MEDS ORDERED: ONDANSETRON HCL INJ/PF 4 MG/2 ML SDV IV PRN (08:53)
[2018-10-03] MEDS ORDERED: FENTANYL CITRATE INJ/PF 100 MCG/2 ML AMPUL IV PRN ×3 (08:53)
[2018-10-03] MEDS ORDERED: DIPHENHYDRAMINE HCL 50 MG/ML VIAL IV PRN (08:53)
[2018-10-03] MEDS ORDERED: MORPHINE SULFATE 10 MG/ML INJ IV PRN (08:53)
[2018-10-03] MEDS ORDERED: OXYCODONE-ACETAMINOPHEN 5-325 MG TABLET PO PRN ×3 (08:53→09:26)
[2018-10-03] MEDS ORDERED: PROMETHAZINE HCL INJ 25 MG/1 ML VIAL IV PRN ×3 (08:53→09:26)
[2018-10-03] MEDS ORDERED: MEPERIDINE HCL/PF INJ 25 MG/1 ML DISP.SYRIN IV PRN (08:53)
[2018-10-03] MEDS ORDERED: RINGERS SOLUTION,LACTATED 1,000 ML IV PRN (09:17)
[2018-10-03] MEDS ORDERED: LIDOCAINE 0.5% INJ-PF (5 MG/ML) 50 ML SDV SUBCUT PRN (09:17)
[2018-10-03] MEDS ORDERED: LACTATED RINGERS 1000 ML IV PRN (09:17)
[2018-10-03] MEDS ORDERED: CEFAZOLIN 2 GM/D5W RTU 2 GM/50 ML RTUPB IV PRN (09:19)
[2018-10-03] MEDS ORDERED: MEASLES,MUMPS&RUBELLA VACC/PF 0.5 ML VIAL SUBCUT PRN (09:26)
[2018-10-03] MEDS ORDERED: SIMETHICONE 80 MG TAB.CHEW PO PRN (09:26)
[2018-10-03] MEDS ORDERED: MORPHINE SULFATE 10 MG/ML INJ IM PRN (09:26)
[2018-10-03] MEDS ORDERED: ACETAMINOPHEN 325 MG TABLET PO PRN (09:26)
[2018-10-03] MEDS ORDERED: OXYTOCIN/NORMAL SALINE 20 UNIT/1,000 ML RTUINJ IV PRN (09:26)
[2018-10-03] MEDS ORDERED: DIPH/PERTUSS(ACELL)/TETANUS VAC/PF 0.5 ML SYR (>=10YO) IM PRN (09:26)
--- NOTE | 2018-10-03 09:26 | PDOC DELIVERY SUMMARY ---
Delivery Summary - Maternal Hx : Hx # Term Pregnancies: 4 Hx Total # of Abortions (Sponateous & Elective): 1 CANDIDO: 10/08/18 Risk Factors: Previous Ruptured Membranes: AROM Fluids: Clear - Delivery Labor: Not In Labor Presentation: Vertex Uterine Contraction Monitoring: External Support Person Present: Yes : Scheduled Placenta: Within Normal Limits Nuchal Cord: Yes - Medications Type of Anesthesia:: Spinal
[2018-10-03] MEDS ORDERED: KETOROLAC TROMETHAMINE INJ/PF 30 MG/1 ML SDV ONE (09:30)
--- NOTE | 2018-10-03 09:42 | OPERATIVE REPORT E ---
Operative Report NAME: JAZMIN FUNES : 1985 AGE: 33Y DATE OF SURGERY: 10/03/2018 ROOM: 216 PREOPERATIVE DIAGNOSIS: INTRAUTERINE AT TERM WITH PRIOR AND DESIRE FOR STERILIZATION. POSTOPERATIVE DIAGNOSIS: INTRAUTERINE AT TERM WITH PRIOR AND DESIRE FOR STERILIZATION. OPERATION: Repeat low transverse with delivery of viable male. The 's and weight are pending. SURGEON: Asia BALLARD M.D. TISSUE REMOVED Placenta. ANESTHESIA: Spinal. PROCEDURE: The patient was placed in the supine position, prepped and draped in a sterile fashion. A Pfannenstiel incision made through an existing Pfannenstiel eschar and incision extended through subcutaneous tissue and fascia. Fascia was sharply divided. Rectus muscle was bluntly and sharply divided. Parietal peritoneum was entered with sharp dissection. The uterus was nicked in the midline and extended bilaterally. was then delivered through the uteroabdominal incision. Nose and mouth were suctioned with bulb syringe, cord was clamped, and infant was passed from the table. Placenta was manually extracted. The uterus was closed using 2 layers using 0 Vicryl for the first running stitch and the second a Lembert stitch imbricating the first layer. Two areas of bleeding were noted with controlled [id number] sutures of 0-Vicryl. The right fallopian tube was left banded in the mid portion with a good purchase being noted. Procedure was repeated on the left, again with a good purchase being noted and the tubes were identified through the fimbria prior to and after banding. The fascia enclosed with 0 Vicryl, and the skin was closed with subcutaneous absorbable del. She tolerated procedure well. Was taken to recovery in good condition. Urine remained clear throughout procedure. DICTATING PHYSICIAN: Asia BALLARD M.D. [id number] PHY#: [id number] ID: [id number] JOB#: [id number] ACCT: [id number] cc:Asia BALLARD M.D. >
[2018-10-03] MEDS ORDERED: IBUPROFEN 600 MG TABLET PO PRN (15:00)
[2018-10-03] MEDS: OXYCODONE-ACETAMINOPHEN 5-325 MG TABLET PO PRN ×2 (15:58→23:57)
[2018-10-03] MEDS: KETOROLAC TROMETHAMINE INJ/PF 30 MG/1 ML SDV IV SCH (17:09)
[2018-10-03] MEDS: DOCUSATE SODIUM 100 MG CAPSULE PO SCH (17:09)
[2018-10-04] MEDS: KETOROLAC TROMETHAMINE INJ/PF 30 MG/1 ML SDV IV SCH ×2 (01:18→10:03)
[2018-10-04 07:17] LABS: HEMATOCRIT 26.4 % (36.0-47.0); HEMOGLOBIN 8.5 g/dL (12.0-15.5); MEAN CORPUSCULAR HEMOGLOBIN 23.7 pg (27.0-33.4); MEAN CORPUSCULAR HGB CONC 32.3 g/dL (32.0-36.0); MEAN CORPUSCULAR VOLUME 73 fl (80-97); PLATELET COUNT 172 10^3/uL (150-450); RED CELL DISTRIBUTION WIDTH 17.9 % (11.5-14.0); WHITE BLOOD COUNT 10.5 10^3/uL (4.0-10.5)
--- NOTE | 2018-10-04 09:05 | PDOC PROGRESS REPORT ---
Subjective Progress Note for:: 10/04/18 Subjective:: Patient states that she feels good; pain controlled. Patient ambulating and voiding without difficulty. Patient denies chest pain, shortness of breath, fever/chills and nausea/vomiting. Reason For Visit: Physical Exam - Physical Exam Vital Signs: Temp Pulse Resp BP Pulse Ox 98.4 F 97 16 126/74 H 98 10/04/18 07:50 10/04/18 07:50 10/04/18 07:50 10/04/18 07:50 10/04/18 07:50 Intake & Output 10/03/18 10/04/18 10/05/18 06:59 06:59 06:59 Intake Total 1700 Output Total 1718 Balance -18 Weight 141.974 kg General appearance: PRESENT: no acute distress Respiratory exam: PRESENT: clear to auscultation michael Cardiovascular exam: PRESENT: RRR GI/Abdominal exam: PRESENT: normal bowel sounds, soft - Incision: Patient did not allow me to see it Extremities exam: ABSENT: calf tenderness, clubbing, full ROM, joint swelling, pedal edema, tenderness, +1 edema, +2 edema, other Result Laboratory Results: 10/04/18 06:38 10/04/18 10/04/18 06:38 06:38 WBC 10.5 RBC 3.60 L Hgb 8.5 L Hct 26.4 L MCV 73 L MCH 23.7 L MCHC 32.3 RDW 17.9 H Plt Count 172 Blood Type Cancelled Assessment & Plan - Diagnosis (1) Status post repeat low transverse section Is this a current diagnosis for this admission?: Yes (2) Maternal obesity affecting , antepartum Is this a current diagnosis for this admission?: Yes (3) Anemia, antepartum Is this a current diagnosis for this admission?: Yes - Time Time Spent with patient: Less than 15 minutes Within: within 48 hours - Inpatient Certification Based on my medical assessment, after consideration of the patient's co morbidities, presenting symptoms, or acuity I expect that the services needed warrant INPATIENT care.: Yes I certify that my determination is in accordance with my understanding of Medicare's requirements for reasonable and necessary INPATIENT services [42 CFR 412.3e].: Yes - Plan Summary Plan Summary: 1. Continue post /postoperative care
[2018-10-04] MEDS: DOCUSATE SODIUM 100 MG CAPSULE PO SCH ×2 (10:03→18:10)
[2018-10-04] MEDS: PRENATAL VITAMIN W DHA CAPSULE PO SCH (10:03)
[2018-10-04] MEDS: IBUPROFEN 800 MG TABLET PO SCH ×3 (13:09→23:14)
[2018-10-05] MEDS: IBUPROFEN 800 MG TABLET PO SCH (05:29)
--- NOTE | 2018-10-05 09:16 | PDOC PROGRESS REPORT ---
Subjective-OB Progress Note for:: 10/05/18 Subjective: Doing well, feeling better, ready to go home Physical Exam (OB) Vital Signs: Temp Pulse Resp BP Pulse Ox 98.2 F 95 18 132/81 H 96 10/05/18 07:48 10/05/18 07:48 10/05/18 07:48 10/05/18 07:48 10/05/18 07:48 Intake & Output 10/04/18 10/05/18 10/06/18 06:59 06:59 07:59 Intake Total 1700 3500 Output Total 1718 Balance -18 3500 - PIH/Pre-Eclampsia DTR's: 2 + Clonus: Negative Headache: Absent Epigastric Pain: No Visual Changes: No - Dressing Removed: No Incision: Open Closure Type: Surgical Glue - Lochia Lochia Amount: Scant < 10 ml Lochia Color: Rubra/Red - Abdomen Description: Tender, Soft Hernia Present: No Fundal Description: Firm, Midline Fundal Height: u/3 - u/4 Objective-Diagnostic Laboratory: 10/04/18 06:38 Assessment and Plan(PN) - Assessment and Plan (1) Anemia, antepartum Is this a current diagnosis for this admission?: Yes (2) Maternal obesity affecting , antepartum Is this a current diagnosis for this admission?: Yes (3) Acute blood loss anemia Is this a current diagnosis for this admission?: Yes (4) Placenta percreta during in third trimester, antepartum Is this a current diagnosis for this admission?: Yes (5) Polyhydramnios Qualifiers: Fetus number: single or unspecified fetus Is this a current diagnosis for this admission?: Yes (6) Status post repeat low transverse section Is this a current diagnosis for this admission?: Yes - Time Spent with Patient Time with patient: Less than 15 minutes Medications reviewed and adjusted accordingly: Yes - Disposition Anticipated Discharge: Home Within: within 24 hours
--- NOTE | 2018-10-05 09:20 | PDOC DISCHARGE SUMMARY ---
Final Diagnosis Discharge Date: 10/05/18 Discharge Data - Discharge Medication Prescriptions: Oxycodone HCl/Acetaminophen [Percocet 5-325 mg Tablet] 1 tab PO Q4HP PRN #20 tablet PRN Reason: Ibuprofen [Motrin 800 mg Tablet] 800 mg PO Q6 #60 tablet Home Medications: Pnv W-O Ca No5/Fe Fumarate/FA [-U Multiple Vitamin Capsule] 1 cap PO DAILY 02/01/13 Ibuprofen [Motrin 800 mg Tablet] 800 mg PO Q6 #60 tablet 10/04/18 Oxycodone HCl/Acetaminophen [Percocet 5-325 mg Tablet] 1 tab PO Q4HP PRN #20 tablet 10/04/18 Reason(s) for Admission: Ceasarean Section-Repeat, Tubal Ligation Admission Note: RH neg Procedures: NST, Ultrasound Intrapartum Procedure(s): : Low Cervical, Transverse, Tubal Ligation - Diagnosis Test Laboratory: Temp Pulse Resp BP Pulse Ox 98.4 F 97 16 126/74 H 98 10/04/18 07:50 10/04/18 07:50 10/04/18 07:50 10/04/18 07:50 10/04/18 07:50 10/01/18 10/01/18 10/04/18 09:56 10:05 06:38 RBC 3.91 3.60 L Hgb 9.2 L 8.5 L Hct 28.6 L 26.4 L Urine Opiates Screen NEGATIVE - Discharge information/Instructions Discharge Activity: Activity As Tolerated, No Driving, No Lifting Over 10 Pounds, No Lifting/Push/Pulling, Pelvic Rest Discharge Diet: As Tolerated, Regular Disposition: HOME, SELF-CARE Follow up with: [facility] in: 1, Days
[2018-10-05 09:57] VITALS: BP 131/78
[2018-10-05] MEDS: PRENATAL VITAMIN W DHA CAPSULE PO SCH (11:04)
[2018-10-05] MEDS: DOCUSATE SODIUM 100 MG CAPSULE PO SCH (11:05)
== END 2018-10-05 12:09 | disposition home or self-care (01) | DRG 784 ==
LOC: 2S 10-03 05:38
PROVIDERS: ADMIT Obstetrics & Gynecology Gynecology; ATTEND Obstetrics & Gynecology Gynecology
PROC: 0UL70ZZ Occlusion of Bilateral Fallopian Tubes, Open Approach (ICD-10-PCS; 2018-10-03)
PROC: 10D00Z1 Extraction of Products of Conception, Low, Open Approach (ICD-10-PCS; principal; 2018-10-03 08:30)
DX: O34.211 Maternal care for low transverse scar from previous cesarean delivery (principal); O36.0930 Maternal care for other rhesus isoimmunization, third trimester, not applicable or unspecified; D62 Acute posthemorrhagic anemia; N85.8 Other specified noninflammatory disorders of uterus; O99.824 Streptococcus B carrier state complicating childbirth; Z37.0 Single live birth; O99.214 Obesity complicating childbirth; O99.02 Anemia complicating childbirth; D64.9 Anemia, unspecified; O90.81 Anemia of the puerperium; O40.3XX0 Polyhydramnios, third trimester, not applicable or unspecified; Z3A.39 39 weeks gestation of pregnancy; Z30.2 Encounter for sterilization
CPT/HCPCS: 1961; 36415; 59025; 80307; 81001; 85025; 85027; 86850; 86900; 86901; 94799; J0131; J1885; J2210; J2250; J2405; J2590; J3010; J3370; J3490; J7120